=== PATIENT | male | born 1965 | race Caucasian/White ===

== ENCOUNTER 2022-03-10 09:30 | Inpatient (IN) ==
[2022-03-10] MEDS ORDERED: MoRPHine SULFATE 10 MG/ML CARP/VIAL IV STA ×3 (09:57→13:26)
[2022-03-10] MEDS ORDERED: ONDANSETRON INJ 2 MG/ML 2 ML VIAL IV STA (09:57)
[2022-03-10] MEDS ORDERED: SODIUM CHLORIDE 0.9% 1000ML 1,000 ML IV ONE (09:57)
--- NOTE | 2022-03-10 10:01 | Emergency Department Note ---
Impression & Plan Acute cholecystitis, Abdominal pain ED Provider Note NAME: SHAKIRA LOUIS AGE: 56 SEX: M : 1965 ARRIVES VIA: Walk-In INFORMANT: Patient ED PROVIDER(S): eSun Patton DO CHIEF COMPLAINT: abdominal pain HPI: Patient is a 56-year-old male who presents to the ER for epigastric abdominal pain associate with nausea and vomiting. Symptoms initially started on Tuesday and he vomited and it resolved but he had a dull ache in the epigastric region. Started back up yesterday and he is been having severe pain since about 10:00 last night. It is an 8 out of 10. He denies any headache or change in vision. No chest pain or shortness of breath. No dysuria urgency or frequency. No other exacerbating or remitting factors. No previous abdominal surgeries. He does not believe that it is worse with eating or drinking but has not been eating much since this started. ROS: See above HPI for pertinent positives & negatives. A total of 10 systems reviewed and were otherwise negative. PAST MEDICAL HISTORY:See Below PAST SURGICAL HISTORY:See Below FAMILY HISTORY:See Below SOCIAL HISTORY:See Below HOME MEDICATIONS:See Below ALLERGIES:See Below VITALS:See Below PHYSICAL EXAMINATION: GENERAL: Sitting up in bed, alert, well appearing, well nourished, no distress, non-toxic EYE EXAM: normal conjunctiva. OROPHARYNX: mucous membranes are moist LUNGS: Clear to auscultation. Normal chest wall mechanics HEART: no murmurs, S1 normal and S2 normal ABDOMEN: abdomen soft, TTP in RUQ, normo-active bowel sounds, no masses, no rebound or guarding. UPPER EXTREMITIES: upper extremities are grossly normal. LOWER EXTREMITIES: No pitting edema. NEURO EXAM: Normal sensorium, cranial nerves II-XII grossly intact, normal speech, no gross weakness of arms, no gross weakness of legs. MEDICAL DECISION MAKING: Patient is a 56-year-old male who presents ER for severe right upper quadrant abdominal pain. IV was established blood work was obtained. Labs show no significant leukocytosis or anemia. BMP along LFTs bilirubin and lipase is unremarkable. COVID was negative. CT abdomen pelvis shows acute cholecystitis. He was given IV fluids Zofran morphine and Zosyn. Discussed with general surgery and he was seen and evaluated by Dr. Rhodes and admitted to the hospital for further work-up. Triage Nursing notes reviewed. Limited review of prior medical records performed Vital Signs: reviewed and remarkable for HTN Differential diagnosis: Differential diagnoses includes but is not limited to gastritis, peptic ulcer disease, GERD, gallbladder disease, pancreatitis, small bowel obstruction, acute coronary syndrome, pericarditis, ischemic bowel, irritable bowel disease, irri table bowel syndrome, appendicitis, diverticulitis, malignancy, hernia, urinary tract infection, torsion, perforation, trauma, infectious. ER treatment provided: See below Diagnostics interpreted by me: ECG: none Cardiac Monitoring: An order was placed for continuous cardiac monitoring. The monitor shows a rate of 80 with sinus rhythm. Laboratory studies: As stated above and show below. Imaging studies: CT abdomen pelvis shows cholecystitis Consultation(s): Discussed with general surgery Dr. Rhodes as described above Procedures: none Critical Care: None Past Med/Surg History Social History Smoking Status: Current every day smoker Tobacco Type: E-cigarettes / Vaping Preferred Language: Turkish Feels Safe at Home: Yes Allergies Allergies Allergy/AdvReac Type Severity Reaction Status Date / Time NKDA Allergy Unknown NKDA Uncoded 03/10/22 14:02 Home Meds Home Medications Medication Instructions Recorded Confirmed No Known Home Medications 03/10/22 03/10/22 Results & Data (ED) Vital Signs Vital Signs - 24 hr 03/10/22 09:41 03/10/22 10:37 03/10/22 10:31 Temperature 36.2 C L Temperature Source Temporal Artery Scan Pulse Rate 74 74 71 Pulse Rate from SpO2 Sensor 70 Pulse Rhythm Regular Regular Pulse Strength Normal Respiratory Rate 20 20 16 Respiratory Effort / Characteristics Non-Labored Spontaneous Respiratory Depth Normal Respiratory Pattern Regular Blood Pressure 170/97 H Blood Pressure Mean 121 Blood Pressure Position Sitting Pulse Oximetry 95 95 95 Oxygen Delivery Method Room Air Room Air Sepsis Recent Fever Within 48 Hours No Sepsis New/Unexplained Change in Mental Status No Sepsis Action Taken by Nursing No Action Required 03/10/22 10:40 03/10/22 10:40 03/10/22 11:00 Temperature Temperature Source Pulse Rate 63 Pulse Rate from SpO2 Sensor 63 Pulse Rhythm Pulse Strength Respiratory Rate 12 Respiratory Effort / Characteristics Respiratory Depth Respiratory Pattern Blood Pressure 150/89 H 146/88 H Blood Pressure Mean 109 107 Blood Pressure Position Pulse Oximetry 97 Oxygen Delivery Method Sepsis Recent Fever Within 48 Hours Sepsis New/Unexplained Change in Mental Status Sepsis Action Taken by Nursing 03/10/22 11:00 03/10/22 11:30 03/10/22 11:30 Temperature Temperature Source Pulse Rate 62 63 Pulse Rate from SpO2 Sensor 61 63 Pulse Rhythm Pulse Strength Respiratory Rate 15 14 Respiratory Effort / Characteristics Respiratory Depth Respiratory Pattern Blood Pressure 164/132 H Blood Pressure Mean 142 Blood Pressure Position Pulse Oximetry 90 97 Oxygen Delivery Method Sepsis Recent Fever Within 48 Hours Sepsis New/Unexplained Change in Mental Status Sepsis Action Taken by Nursing 03/10/22 12:00 03/10/22 12:00 03/10/22 12:30 Temperature Temperature Source Pulse Rate 63 Pulse Rate from SpO2 Sensor Pulse Rhythm Pulse Strength Respiratory Rate 14 Respiratory Effort / Characteristics Respiratory Depth Respiratory Pattern Blood Pressure 172/98 H 159/90 H Blood Pressure Mean 122 113 Blood Pressure Position Pulse Oximetry 97 Oxygen Delivery Method Sepsis Recent Fever Within 48 Hours Sepsis New/Unexplained Change in Mental Status Sepsis Action Taken by Nursing 03/10/22 12:30 03/10/22 13:00 03/10/22 13:00 Temperature Temperature Source Pulse Rate 79 65 Pulse Rate from SpO2 Sensor Pulse Rhythm Pulse Strength Respiratory Rate 14 16 Respiratory Effort / Characteristics Respiratory Depth Respiratory Pattern Blood Pressure 151/91 H Blood Pressure Mean 111 Blood Pressure Position Pulse Oximetry 96 97 Oxygen Delivery Method Sepsis Recent Fever Within 48 Hours Sepsis New/Unexplained Change in Mental Status Sepsis Action Taken by Nursing 03/10/22 13:30 03/10/22 13:30 03/10/22 14:00 Temperature Temperature Source Pulse Rate 68 Pulse Rate from SpO2 Sensor Pulse Rhythm Pulse Strength Respiratory Rate 13 Respiratory Effort / Characteristics Respiratory Depth Respiratory Pattern Blood Pressure 150/87 H 146/81 H Blood Pressure Mean 108 102 Blood Pressure Position Pulse Oximetry Oxygen Delivery Method Sepsis Recent Fever Within 48 Hours Sepsis New/Unexplained Change in Mental Status Sepsis Action Taken by Nursing 03/10/22 14:00 03/10/22 14:30 03/10/22 14:30 Temperature Temperature Source Pulse Rate 67 66 Pulse Rate from SpO2 Sensor Pulse Rhythm Pulse Strength Respiratory Rate 13 23 Respiratory Effort / Characteristics Respiratory Depth Respiratory Pattern Blood Pressure 131/70 Blood Pressure Mean 90 Blood Pressure Position Pulse Oximetry Oxygen Delivery Method Sepsis Recent Fever Within 48 Hours Sepsis New/Unexplained Change in Mental Status Sepsis Action Taken by Nursing Laboratory Data Result diagrams: 03/10/22 10:40 03/10/22 10:40 Lab Results 03/10/22 03/10/22 03/10/22 Range/Units 10:40 10:40 12:45 WBC 10.24 (4.8-10.8) K/ul RBC 5.46 (4.63-6.08) M/uL Hgb 15.9 (14.0-18.0) g/dl Hct 47.4 (40.1-51.0) % MCV 86.8 (80.0-100.0) fL MCH 29.1 (25.0-34.0) pg MCHC 33.5 (32.0-36.0) g/dL RDW Std Deviation 39.2 (36.4-46.3) fL RDW Coeff of [place] 12.6 (11.5-14.5) % Plt Count 179 (130-400) K/uL MPV 9.8 (9.4-12.4) fL Immature Gran % (Auto) 0.4 % Neut % (Auto) 79.7 % Lymph % (Auto) 10.2 % [place] % (Auto) 8.8 % Eos % (Auto) 0.7 % Baso % (Auto) 0.2 % Neut # (Auto) 8.17 H (1.4-6.5) K/uL Lymph # (Auto) 1.04 L (1.2-3.4) K/uL [place] # (Auto) 0.90 H (0.24-0.82) K/uL Eos # (Auto) 0.07 (0-0.50) K/uL Baso # (Auto) 0.02 (0-0.2) K/uL Immature Gran # (Auto) 0.04 H (0.00-0.02) K/uL Sodium 139 (136-145) mmol/L Potassium 4.4 (3.5-5.1) mmol/L Chloride 104 (98-107) mmol/L Carbon Dioxide 29 (21-32) mmol/L Anion Gap 6 (3-11) BUN 13 (6-23) mg/dl Creatinine 0.98 (0.6-1.4) mg/dl Est Cr Clr Drug Dosing 109.5 ml/min Est GFR ( Amer) 100.9 ml/min Est GFR (Non-Af Amer) 87.1 ml/min BUN/Creatinine Ratio 13.3 (10-20) Glucose 113 H (70-99(Fasting)) mg/dl Calcium 9.5 (8.5-10.1) mg/dl Total Bilirubin 0.5 (0.2-1.0) mg/dl AST 14 (13-39) U/L ALT 17 (7-52) U/L Alkaline Phosphatase 57 (34-104) U/L Total Protein 6.9 (6.0-8.3) gm/dl Albumin 4.3 (3.4-5.0) gm/dl Globulin 2.6 (2.5-4.0) gm/dl Albumin/Globulin Ratio 1.7 (0.9-2) Lipase 70 (11-82) U/L SARS-CoV-2, RNA, NAAT NEGATIVE (NEGATIVE) Administered Medications Discontinued Medications Sodium Chloride (Nss 1000ml) 1,000 mls @ 999 mls/hr IV .Q1H1M ONE Stop: 03/10/22 10:57 Last Infusion: 03/10/22 11:40 Dose: 0 mls/hr Documented By: Admin: 03/10/22 10:36 Dose: 999 mls/hr Documented By: ED Piperacillin Sod/Tazobactam Sod (Zosyn) 4.5 gm in 120 mls @ 240 mls/hr IV NOW ONE Stop: 03/10/22 13:06 Last Infusion: 03/10/22 13:16 Dose: 0 mls/hr Documented By: Admin: 03/10/22 12:46 Dose: 240 mls/hr Documented By: ED Ioversol (Optiray 300 100ml) 95 ml IV ONCE ONE Stop: 03/10/22 11:47 Last Admin: 03/10/22 11:47 Dose: 95 ml Documented By: GARETT Morphine Sulfate (Morphine Sulfate 10 Mg/Ml Carp/Vial) 6 mg IV NOW STA Stop: 03/10/22 09:58 Last Admin: 03/10/22 10:37 Dose: 6 mg Documented By: ED Morphine Sulfate (Morphine Sulfate 10 Mg/Ml Carp/Vial) 6 mg IV NOW STA Stop: 03/10/22 11:49 Last Admin: 03/10/22 11:54 Dose: 6 mg Documented By: RD Morphine Sulfate (Morphine Sulfate 10 Mg/Ml Carp/Vial) 6 mg IV NOW STA Stop: 03/10/22 13:27 Last Admin: 03/10/22 14:43 Dose: 6 mg Documented By: ED Ondansetron HCl (Ondansetron Inj 2 Mg/Ml 2 Ml Vial) 4 mg IV NOW STA Stop: 03/10/22 09:58 Last Admin: 03/10/22 10:37 Dose: 4 mg Documented By: ED Imaging Data Radiologist's Impression: Abdomen/Pelvis CT 03/10/22 09:57 CT OF THE ABDOMEN AND PELVIS WITH CONTRAST CLINICAL HISTORY: Abdominal pain. COMPARISON STUDY: None. TECHNIQUE: Following IV administration of 95 mL of Optiray, axial images of the abdomen and pelvis were obtained from the lung bases to the proximal femurs. Images were reviewed in the axial, sagittal, and coronal planes. IV contrast was administered without complication. Automated exposure control was utilized for the study. A dose lowering technique was utilized adhering to the principles of ALARA. CT DOSE: 1116.35 mGy.cm FINDINGS: There is mild circumferential wall thickening of the distal esophagus. No pneumatosis, free air or portal venous gas is present. A 8 mm hypodense left hepatic lobe lesion on axial image 97 of 536 likely reflects a hepatic cyst. There are several indeterminate intermediate attenuation hepatic lesions within the right lobe, measuring up to 1.8 cm. There is no biliary or pancreatic ductal dilatation. There is moderate pericholecystic stranding. This extends into the juan hepatis. The gallbladder is mildly distended. No calculi are identified by CT. There is no peripancreatic stranding. The spleen, adrenal glands and kidneys are unremarkable. There is no hydronephrosis. The appendix is normal. Colonic diverticulosis is noted without evidence for acute diverticulitis. There is no lymphadenopathy. Postoperative findings within the spine are noted. Small fat-containing right inguinal hernia is present. Major vasculature is patent. IMPRESSION: 1. Moderate pericholecystic infiltration with mild gallbladder distention. The findings suggest acute cholecystitis. 2. Several intermediate attenuation right hepatic lobe lesions that measure up to 1.8 cm. In the absence of known malignancy, these are likely benign although are indeterminate. If indicated, a nonemergent MRI of the liver could be obtained. 3. Mild circumferential wall thickening of the distal esophagus. This could reflect esophagitis. 4. Colonic diverticulosis. No evidence for acute diverticulitis. ACT 112: Negative or not required by law. Electronically signed by: Piyush Hinton M.D. 03/10/2022 12:13 PM Discharge Plan Visit Data Chief Complaint: Abdominal Pain Stated Complaint: SEVERE ABDOMINAL PAIN ED Provider: Seun Patton Discharge Problem: Acute cholecystitis, Abdominal pain Forms Stand Alone Forms: Work/School Release (ED), [facility] Prescriptions Prescriptions: No Action No Known Home Medications Referrals Referrals: PCP,NO [Primary Care Provider] -
[2022-03-10 10:56] LABS: Basophils # (auto) 0.02 K/uL (0-0.2); Basophils % (auto) 0.2 %; Eosinophils # (auto) 0.07 K/uL (0-0.50); Eosinophils % (auto) 0.7 %; Hematocrit (blood only) 47.4 % (40.1-51.0); Hemoglobin 15.9 g/dl (14.0-18.0); Immature Granulocytes # (auto) 0.04 K/uL (0.00-0.02); Immature Granulocytes % (auto) 0.4 %; Lymphocytes # (auto) 1.04 K/uL (1.2-3.4); Lymphocytes % (auto) 10.2 %; Mean Corpuscular Hemoglobin 29.1 pg (25.0-34.0); Mean Corpuscular Hgb Conc 33.5 g/dL (32.0-36.0); Mean Corpuscular Volume 86.8 fL (80.0-100.0); Mean Platelet Volume 9.8 fL (9.4-12.4); Monocytes % (auto) 8.8 %; Neutrophils # (auto) 8.17 K/uL (1.4-6.5); Neutrophils % (auto) 79.7 %; Platelet Count 179 K/uL (130-400); RDW Coefficient of Variation 12.6 % (11.5-14.5); RDW Standard Deviation 39.2 fL (36.4-46.3); Red Blood Count 5.46 M/uL (4.63-6.08); White Blood Count 10.24 K/ul (4.8-10.8)
[2022-03-10 11:19] LABS: Albumin Globulin Ratio 1.7 (0.9-2); Albumin Level 4.3 gm/dl (3.4-5.0); BUN Creatinine Ratio 13.3 (10-20); Bilirubin,Total 0.5 mg/dl (0.2-1.0); Calcium 9.5 mg/dl (8.5-10.1); Creatinine Clr Calc Pharmacy 109.5 ml/min; Est GFR (African American) 100.9 ml/min; Est GFR (Non-African American) 87.1 ml/min; Globulin 2.6 gm/dl (2.5-4.0); Potassium 4.4 mmol/L (3.5-5.1); Total Protein 6.9 gm/dl (6.0-8.3)
[2022-03-10] MEDS ORDERED: OPTIRAY 300 100mL IV ONE (11:46)
--- NOTE | 2022-03-10 12:15 | CT Scan Report ---
CT OF THE ABDOMEN AND PELVIS WITH CONTRAST CLINICAL HISTORY: Abdominal pain. COMPARISON STUDY: None. TECHNIQUE: Following IV administration of 95 mL of Optiray, axial images of the abdomen and pelvis we re obtained from the lung bases to the proximal femurs. Images were reviewed in the axial, sagittal, and coronal planes. IV contrast was administered without complication. Automated exposure control wa s utilized for the study. A dose lowering technique was utilized adhering to the principles of ALARA . CT DOSE: 1116.35 mGy.cm FINDINGS: There is mild circumferential wall thickening of the distal esophagus. No pneumatosis, free air or portal venous gas is present. A 8 mm hypodense left hepatic lobe lesion on axial image 97 of 536 likely reflects a hepatic cyst. There are several indeterminate intermediate attenuation hepatic lesions within the right lobe, measuring up to 1.8 cm. There is no biliary or pancreatic ductal dilat ation. There is moderate pericholecystic stranding. This extends into the juan hepatis. The gallblad mary is mildly distended. No calculi are identified by CT. There is no peripancreatic stranding. The s pleen, adrenal glands and kidneys are unremarkable. There is no hydronephrosis. The appendix is tristan l. Colonic diverticulosis is noted without evidence for acute diverticulitis. There is no lymphadenop athy. Postoperative findings within the spine are noted. Small fat-containing right inguinal hernia i s present. Major vasculature is patent. IMPRESSION: 1. Moderate pericholecystic infiltration with mild gallbladder distention. The findings suggest acute cholecystitis. 2. Several intermediate attenuation right hepatic lobe lesions that measure up to 1.8 cm. In the abse nce of known malignancy, these are likely benign although are indeterminate. If indicated, a nonemerg ent MRI of the liver could be obtained. 3. Mild circumferential wall thickening of the distal esophagus. This could reflect esophagitis. 4. Colonic diverticulosis. No evidence for acute diverticulitis. ACT 112: Negative or not required by law. Electronically signed by: Piyush Hinton M.D. 03/10/2022 12:13 PM
[2022-03-10] MEDS ORDERED: PIPERACILLIN/TAZOBACTAM 4.5 GM/120 ML BAG IV ONE (12:37)
--- NOTE | 2022-03-10 13:49 | Surgery Consultation ---
Date of Consultation March 10, 2022 Assessment & Plan (1) Acute cholecystitis: pt is a 56 year -old male who presents to ER with 2 days history of RUQ pain with nausea and vomiting, IMP: acute cholecystitis, Plan I recommend to admit pt to hospital , NPO, IV fluid antibiotic, control pain, U/S study gallbladder. MRI liver lesion, repeat labs in morning, possible do laparoscopic cholecystectomy, possible open or cholangiogram tomorrow, D/W benefits, risks and alternatives of the surgery, pt understood, he agrees wit the plan, I answered all questions, History of Present Illness Reason for Consultation: acute cholecystitis Requesting Physician: Seun Thomas Attending Physician: Zohaib Irene History of Present Illness CHIEF COMPLAINT: abdominal pain HPI: Patient is a 56-year-old male who presents ER for epigastric abdominal pain associate with nausea and vomiting. Symptoms initially started on Tuesday and he vomited and it resolved but he had a dull ache in the epigastric region. Started back up yesterday and he is been having severe pain since about 10:00 last night. It is an 8 out of 10. He denies any headache or change in vision. No chest pain or shortness of breath. No dysuria urgency or frequency. No other exacerbating or remitting factors. No previous abdominal surgeries. He does not believe that it is worse with eating or drinking but has not been eating much since this started. I ( Zohaib Rhodes MD ) got a call for consult acute cholecystitis, I reviewed pt's H/P, labs and CT scan with pt, pt is still have RUQ pain pain is 8/10, Patient History Social History Smoking Status: Current every day smoker Tobacco Type: E-cigarettes / Vaping Preferred Language: Serbian Feels Safe at Home: Yes Physical Exam Constitutional: mild distress Eyes: PERRL, conjunctivae normal, anicteric sclerae Neck: trachea midline, no thyromegaly Respiratory: normal respiratory effort, lungs clear to auscultation Cardiovascular: RRR, no murmur, no edema Gastrointestinal (Abdomen): soft. tenderness at RUQ, no rebound pain, no distend, BS +. Musculoskeletal: no cyanosis or clubbing, extremities motor strength 5/5 Neurologic: patellar DTR's 2+ bilat, sensation intact Psychiatric: A+Ox3, euthymic affect Results & Data ([facility]) Vital Signs (Past 12 Hours) Vital Signs Temp Pulse Resp BP Pulse Ox O2 Del Method 03/10/22 13:00 65 16 97 03/10/22 13:00 151/91 H 03/10/22 12:30 79 14 96 03/10/22 12:30 159/90 H 03/10/22 12:00 63 14 97 03/10/22 12:00 172/98 H 03/10/22 11:30 63 14 97 03/10/22 11:30 164/132 H 03/10/22 11:00 62 15 90 03/10/22 11:00 146/88 H 03/10/22 10:40 63 12 97 03/10/22 10:40 150/89 H 03/10/22 10:31 71 16 95 03/10/22 10:37 74 20 95 Room Air 03/10/22 09:41 36.2 C L 74 20 170/97 H 95 Room Air Laboratory Results Abnormal lab results 03/10/22 03/10/22 Range/Units 10:40 10:40 Neut # (Auto) 8.17 H (1.4-6.5) K/uL Lymph # (Auto) 1.04 L (1.2-3.4) K/uL [place] # (Auto) 0.90 H (0.24-0.82) K/uL Immature Gran # (Auto) 0.04 H (0.00-0.02) K/uL Glucose 113 H (70-99(Fasting)) mg/dl Diagnostic Findings CT OF THE ABDOMEN AND PELVIS WITH CONTRAST CLINICAL HISTORY: Abdominal pain. COMPARISON STUDY: None. TECHNIQUE: Following IV administration of 95 mL of Optiray, axial images of the abdomen and pelvis were obtained from the lung bases to the proximal femurs. Images were reviewed in the axial, sagittal, and coronal planes. IV contrast was administered without complication. Automated exposure control was utilized for the study. A dose lowering technique was utilized adhering to the principles of ALARA. CT DOSE: 1116.35 mGy.cm FINDINGS: There is mild circumferential wall thickening of the distal esophagus. No pneumatosis, free air or portal venous gas is present. A 8 mm hypodense left hepatic lobe lesion on axial image 97 of 536 likely reflects a hepatic cyst. There are several indeterminate intermediate attenuation hepatic lesions within the right lobe, measuring up to 1.8 cm. There is no biliary or pancreatic ductal dilatation. There is moderate pericholecystic stranding. This extends into the juan hepatis. The gallbladder is mildly distended. No calculi are identified by CT. There is no peripancreatic stranding. The spleen, adrenal glands and kidneys are unremarkable. There is no hydronephrosis. The appendix is normal. Colonic diverticulosis is noted without evidence for acute diverticulitis. There is no lymphadenopathy. Postoperative findings within the spine are noted. Small fat- containing right inguinal hernia is present. Major vasculature is patent. IMPRESSION: 1. Moderate pericholecystic infiltration with mild gallbladder distention. The findings suggest acute cholecystitis. 2. Several intermediate attenuation right hepatic lobe lesions that measure up to 1.8 cm. In the absence of known malignancy, these are likely benign although are indeterminate. If indicated, a nonemergent MRI of the liver could be obtained. 3. Mild circumferential wall thickening of the distal esophagus. This could reflect esophagitis. 4. Colonic diverticulosis. No evidence for acute diverticulitis.
[2022-03-10 15:40] LABS: Appearance Urine Clear (Clear); Bilirubin Urine Negative (Negative); Blood Urine Negative (Negative); Color Urine Yellow; Glucose Urine UA Negative (Negative); Ketones Urine Negative (Negative); Leukocyte Esterase Urine Negative (Negative); Nitrite Urine Negative (Negative); Protein Urine Negative (Negative); Specific Gravity Urine > 1.045 (1.000-1.030); Urobilinogen Urine Negative (Negative); pH Urine 6.5 (4.5-7.5)
[2022-03-10] MEDS ORDERED: HYDROmorphone INJ 0.5 MG/0.5 ML SYR IV PRN (16:27)
--- NOTE | 2022-03-10 17:09 | Anesthesiology Consultation ---
Date of Service March 10, 2022 Assessment & Plan (1) Encounter for pre-operative examination: Chart Review Chart Review: Acceptable Risk for Surgery and Patient NOT seen in Pre Admission Testing Consults Requested none History Surgery Operation Date: 03/11/22 07:00 Proposed Procedures p Laparoscopic Cholecystectomy - Zohaib Rhodes MD Height/Weight Height: 5 ft 11 in Weight: 111.6 kg Allergies Allergy/AdvReac Type Severity Reaction Status Date / Time NKDA Allergy Unknown NKDA Uncoded 03/10/22 14:02 Medications Home Medications Medication Instructions Recorded Confirmed Last Taken No Known Home Medications 03/10/22 03/10/22 Unknown Active Medications Generic Name Dose Route Start Last Admin Trade Name Freq PRN Reason Stop Dose Admin Potassium Chloride/Dextrose/Sod Cl 20 meq in 1,000 mls @ 100 mls/hr 03/10/22 17:00 03/10/22 17:10 D5w And 1/2nss + 20meq Kcl IV 04/09/22 16:59 100 mls/hr .Q10H JAY Administration Protocol Past Medical History Medical History Obesity Vapes nicotine containing substance Social History Smoking Status: Current every day smoker tobacco type: e-cigarettes Do You Dip or Chew Tobacco: No Hx Alcohol Use: No Hx Substance Use: No Physical Exam Vital Signs Last Vital Signs Temp 36.9 C 03/10/22 16:31 Pulse 73 03/10/22 16:31 Resp 19 03/10/22 16:31 BP 151/89 H 03/10/22 16:31 Pulse Ox 95 03/10/22 16:31 O2 Del Method 03/10/22 16:31 Testing Laboratory Results 03/10/22 10:40 03/10/22 10:40 Urine Color Yellow 03/10/22 14:45 Urine Appearance Clear (Clear) 03/10/22 14:45 Urine pH 6.5 (4.5-7.5) 03/10/22 14:45 Ur Specific [place] > 1.045 (1.000-1.030) H 03/10/22 14:45 Urine Protein Negative (Negative) 03/10/22 14:45 Urine Glucose (UA) Negative (Negative) 03/10/22 14:45 Urine Ketones Negative (Negative) 03/10/22 14:45 Urine Nitrite Negative (Negative) 03/10/22 14:45 Ur Leukocyte Esterase Negative (Negative) 03/10/22 14:45 Electrocardiogram Date: 03/10/22 Findings: + NSST changes and + RBBB (incomplete) NSR with sinus arrhythmia, rate 69, pulmonary disease pattern
[2022-03-10] MEDS: PIPERACILLIN/TAZOBACTAM 3.375 GM in DEXTROSE 5% 100 ML IV SCH (17:10)
[2022-03-10] MEDS: D5W AND 1/2NSS + 20MEQ KCL 20 MEQ/1,000 ML BAG IV SCH (17:10)
--- NOTE | 2022-03-10 18:52 | XRay Report ---
XR orbits for MRI CLINICAL HISTORY: to R/O FB TECHNIQUE: AP and lateral views of the orbits were submitted for interpretation. Comparison: None available at the time of this dictation. FINDINGS/IMPRESSION: There are no radiopaque metallic foreign bodies. The osseous structures are unremarkable. ACT 112: Negative or not required by law. Electronically signed by: Gianni Garza M.D. 03/10/2022 6:51 PM
[2022-03-10] MEDS ORDERED: GADOXETATE DISODIUM IV ONE (19:42)
--- NOTE | 2022-03-10 21:09 | Ultrasound Report ---
US gallbladder CLINICAL HISTORY: liver and gallbladder TECHNIQUE: Multiple real-time sonographic images of the right upper quadrant were obtained. Comparison: None available at the time of this dictation. FINDINGS: The liver is diffusely homogenous with normal contour and echogenicity. Numerous echogenic lesions ar e seen, measuring up to 1.5 x 1.5 x 1.6 cm. No intrahepatic ductal dilatation is seen. Low level int ernal echoes are identified layering dependently within the gallbladder, which is consistent with gal lbladder sludge. The gallbladder wall measures approximately 3 mm in diameter. There is no pericholec ystic fluid present. A sonographic Ellison's sign was elicited by the community relations police lieutenant. The common duct m easures 0.5 cm in diameter at the level of the hepatic artery. The distal pancreas is not visualized due to overlying bowel gas. The visualized portions of the pancreas are unremarkable. The right kidney shows normal echogenicity, cortical thickness and renal contour. The right kidney sh ows no evidence of hydronephrosis or mass. No ascites or free fluid is seen in Tony's pouch. IMPRESSION: 1. Distended appearing gallbladder with borderline wall thickening and gallbladder sludge, together with positive Ellison's sign, is suggestive of acute cholecystitis despite lack of pericholecystic flu id. 2. Hyperechoic liver lesions are seen which likely correspond to hypodensities on prior CT. These ma y represent hemangiomas. If not previously evaluated, liver protocol CT or MRI can be performed. ACT 112: Negative or not required by law. Electronically signed by: Gianni Garza M.D. 03/10/2022 9:07 PM
[2022-03-10] MEDS: ONDANSETRON INJ 2 MG/ML 2 ML VIAL IV PRN (21:29)
--- NOTE | 2022-03-10 22:03 | Magnetic Resonance Report ---
MR abdomen wo/w con CLINICAL HISTORY: liver lesions TECHNIQUE: Multiplanar multisequence images were obtained of the abdomen with and without the adminis tration of contrast. COMPARISON: Comparison is made to CT abdomen pelvis 03/10/2022 FINDINGS: Lower chest: No acute abnormality Liver: A few tiny hepatic cysts are seen. In addition, there is a 15 mm lesion in segment 5 of the li elsa with nodular centripetal enhancement compatible with hemangioma. Gallbladder and biliary tree: Layering gallbladder sludge is seen. There is prominence of the gallbla dder wall and mild pericholecystic edema is seen on T2 imaging. No intra- or extrahepatic biliary jeremías chinyere dilation. Pancreas: Unremarkable, no focal lesions. Spleen: Unremarkable. Adrenals: Unremarkable. Kidneys and ureters: Unremarkable. Bowel: Diverticulosis is seen without evidence of diverticulitis. Mild esophageal thickening is seen. Lymph nodes Retroperitoneal: Unremarkable. Mesenteric: Unremarkable. Peritoneum: Normal Vessels: Unremarkable. Abdominal wall: Unremarkable. Bones: Unremarkable. IMPRESSION: 1. Hepatic lesions are compatible with hemangiomas and cysts. No suspicious lesions with washout are seen. 2. Findings are again concerning for acute cholecystitis with gallbladder sludge. 3. Mild esophageal thickening is seen, clinical correlation for esophagitis is recommended. ACT 112: Negative or not required by law. Electronically signed by: Gianni Garza M.D. 03/10/2022 10:01 PM
[2022-03-11] MEDS: PIPERACILLIN/TAZOBACTAM 3.375 GM in DEXTROSE 5% 100 ML IV SCH ×3 (01:55→17:04)
[2022-03-11] MEDS: D5W AND 1/2NSS + 20MEQ KCL 20 MEQ/1,000 ML BAG IV SCH ×2 (02:28→13:37)
[2022-03-11] MEDS: MoRPHine SULFATE 2 MG/ML CARP IV PRN ×2 (06:05→21:42)
[2022-03-11] MEDS: ONDANSETRON INJ 2 MG/ML 2 ML VIAL IV PRN (06:06)
[2022-03-11 06:35] LABS: Basophils # (auto) 0.02 K/uL (0-0.2); Basophils % (auto) 0.2 %; Eosinophils # (auto) 0.08 K/uL (0-0.50); Eosinophils % (auto) 0.8 %; Hematocrit (blood only) 42.6 % (40.1-51.0); Hemoglobin 14.5 g/dl (14.0-18.0); Immature Granulocytes # (auto) 0.02 K/uL (0.00-0.02); Immature Granulocytes % (auto) 0.2 %; Lymphocytes # (auto) 0.96 K/uL (1.2-3.4); Lymphocytes % (auto) 9.5 %; Mean Corpuscular Hemoglobin 29.2 pg (25.0-34.0); Mean Corpuscular Volume 85.7 fL (80.0-100.0); Monocytes % (auto) 11.9 %; Neutrophils # (auto) 7.79 K/uL (1.4-6.5); Neutrophils % (auto) 77.4 %; Platelet Count 172 K/uL (130-400); RDW Coefficient of Variation 12.5 % (11.5-14.5); RDW Standard Deviation 38.8 fL (36.4-46.3); Red Blood Count 4.97 M/uL (4.63-6.08); White Blood Count 10.07 K/ul (4.8-10.8)
[2022-03-11 06:56] LABS: Albumin Globulin Ratio 1.6 (0.9-2); Albumin Level 3.7 gm/dl (3.4-5.0); BUN Creatinine Ratio 10.3 (10-20); Bilirubin,Total 0.7 mg/dl (0.2-1.0); Calcium 8.6 mg/dl (8.5-10.1); Creatinine Clr Calc Pharmacy 123.3 ml/min; Est GFR (African American) 113.4 ml/min; Est GFR (Non-African American) 97.8 ml/min; Globulin 2.3 gm/dl (2.5-4.0); Potassium 4.1 mmol/L (3.5-5.1)
--- NOTE | 2022-03-11 09:52 | History & Physical Bridge Note ---
Date of Service March 11, 2022 History & Physical Bridge Note I have examined the patient, reviewed the History & Physical and in the interval since the performance of the History & Physical I have noted the following changes of clinical significance: no changes noted
[2022-03-11] MEDS ORDERED: LIDOCAINE 1% LOCAL 20 ML VIAL ONE (09:55)
[2022-03-11] MEDS ORDERED: BUPIVACAINE 0.5 % 5 MG/1 ML MPF 30ML VIAL ONE (09:55)
[2022-03-11] MEDS ORDERED: BACITRACIN OINT 15 GM TUBE ONE (09:55)
[2022-03-11] MEDS ORDERED: MIDAZOLAM HCL 1 MG/ML 2ML VIAL ONE (09:56)
[2022-03-11] MEDS ORDERED: ROCURONIUM BROMIDE 10 MG/ML 5 ML VIAL IV ONE ×2 (09:56→10:47)
[2022-03-11] MEDS ORDERED: LIDOCAINE 2% MPF LOCAL 5 ML VIAL INFIL ONE (09:56)
[2022-03-11] MEDS ORDERED: PROPOFOL IV EMULSION 10 MG/ML 20 ML VIAL IV ONE (09:56)
[2022-03-11] MEDS ORDERED: fentaNYL citrate 100 MCG/2 ML VIAL ONE ×3 (09:57→11:56)
[2022-03-11] MEDS ORDERED: ONDANSETRON INJ 2 MG/ML 2 ML VIAL IV PRN (10:02)
[2022-03-11] MEDS ORDERED: fentaNYL citrate 100 MCG/2 ML VIAL IV PRN (10:02)
[2022-03-11] MEDS ORDERED: ATROPINE SULFATE 0.1 MG/ML 10ML SYR IV PRN (10:02)
[2022-03-11] MEDS ORDERED: ePHEDrine sulfate 50 MG/ML AMP IV PRN (10:02)
[2022-03-11] MEDS ORDERED: ONDANSETRON INJ 2 MG/ML 2 ML VIAL ONE (10:46)
[2022-03-11] MEDS ORDERED: DEXAMETHASONE SOD INJ 4 MG/ML VIAL ONE (10:47)
[2022-03-11] MEDS ORDERED: KETAMINE 50 MG/5 ML SYRINGE ONE (12:05)
--- NOTE | 2022-03-11 12:05 | Post Operative Brief Note ---
Immediate Post Op Note v1 Date of Surgery March 11, 2022 Pre & Post Diagnosis Operation Date: 03/11/22 07:00 Pre-Op Diagnosis: Acute Cholecystitis, cholelithiasis Post-Op Diagnosis: Acute Cholecystitis, cholelithiasis I identified the patient and participated in the time-out.: Yes Procedure Operation Date: 03/11/22 07:00 Actual Procedures p Laparoscopic Cholecystectomy(Not Applicable) - Zohaib Rhodes MD Surgeon Zohaib Rhodes MD Equal Opportunity Representative EVITA Chan Estimated Blood Loss 30 Findings Consistent with Post-Op Diagnosis significant inflammation on gallbladder wall, Fluids 1000ml Specimens gallbladder Anesthesia Type General Complications none Disposition Accompanied Patient To Recovery: Yes
--- NOTE | 2022-03-11 13:19 | Anesthesiology Progress Note ---
Date of Service March 11, 2022 Anesthesia Post Procedure Vital Signs Vital Signs: Temp Pulse Pulse Pulse Pulse Resp BP 03/11/22 13:10 97 H 17 03/11/22 13:00 98.4 F 65 17 03/11/22 12:50 71 16 03/11/22 12:40 72 15 03/11/22 12:32 98.2 F 71 21 03/11/22 09:41 98.8 F 66 20 03/11/22 06:11 98.6 F 75 16 03/10/22 21:30 03/10/22 21:30 03/10/22 22:52 97.9 F 72 18 03/10/22 17:30 03/10/22 16:31 98.4 F 73 19 03/10/22 16:03 88 16 150/82 H 03/10/22 14:30 66 23 03/10/22 14:30 131/70 03/10/22 14:00 67 13 03/10/22 14:00 146/81 H 03/10/22 13:30 68 13 03/10/22 13:30 150/87 H BP BP Pulse Ox Pulse Ox O2 Del Method O2 Del Method O2 Flow Rate 03/11/22 13:10 107/62 93 Nasal Cannula 2 03/11/22 13:00 108/68 94 Nasal Cannula 2 03/11/22 12:50 116/65 96 Oxymask 8 03/11/22 12:40 117/62 94 Oxymask 8 03/11/22 12:32 131/77 91 Oxymask 5 03/11/22 09:41 122/75 95 Room Air 03/11/22 06:11 122/74 94 Room Air 03/10/22 21:30 93 Room Air 03/10/22 21:30 Room Air 03/10/22 22:52 110/67 93 Room Air 03/10/22 17:30 152/83 H 03/10/22 16:31 151/89 H 95 Room Air 03/10/22 16:03 95 Room Air 03/10/22 14:30 03/10/22 14:30 03/10/22 14:00 03/10/22 14:00 03/10/22 13:30 03/10/22 13:30 Pain Intensity Abdomen: Pain Intensity: 4 Head: Pain Intensity: 4 Transfer of Care Handoff Completed per policy Notes Mental Status: alert / awake / arousable and participated in evaluation Patient Amnestic to Procedure: Yes Nausea / Vomiting: adequately controlled Pain: adequately controlled Airway Patency, RR, SpO2: stable & adequate BP & HR: stable & adequate Hydration State: stable & adequate Anesthetic Complications: no major complications apparent and Pt Satisfied with anesthetic care
--- NOTE | 2022-03-11 14:44 | Operative Report (OR) ---
DATE OF PROCEDURE: 03/11/2022. PREOPERATIVE DIAGNOSES: Acute cholecystitis, cholelithiasis. POSTOPERATIVE DIAGNOSES: Acute cholecystitis, cholelithiasis. OPERATION: Laparoscopic cholecystectomy. SURGEON: Zohaib Rhodes MD. [place] ADMINISTRATOR: Shraddha Riddle PA-C. ANESTHESIA: General. ESTIMATED BLOOD LOSS: About 30 mL. FINDINGS: Significant inflammation on the gallbladder wall, acute cholecystitis. COMPLICATIONS: None. INDICATIONS FOR THE PROCEDURE: This is a 56-year-old gentleman who was admitted to the hospital for acute cholecystitis, cholelithiasis. I recommended to do laparoscopic cholecystectomy, possible open , possible cholangiogram. I did talk to the patient about the benefit, risk, alternate procedure. I indicated the risks may include, but not limited to, such as bleeding, infection, injury to other or magi, may need ERCP, incisional hernia, abscess, bile leak. The patient understands. He signed info rmed consent and I answered all questions. DETAILS OF PROCEDURE: After we identified the patient and verified the procedure, we brought the pat ient to the OR, put the patient in the supine position on the OR table. The patient received SCD on bilateral legs to prevent DVT. Also, patient received 3.375 grams Zosyn IV for prophylactic antibiot ic and the patient received general anesthesia without difficulty. The abdomen was prepped and drape d in routine sterile fashion. After timeout, I injected the local anesthesia by using 1% lidocaine m ixed with 0.5% Marcaine just above the umbilicus, then I made a small incision just above umbilicus, opened fascia, opened peritoneum. Under direct vision, put a Brianna trocar in, connected to CO2 to c reate pneumoperitoneum, flow rate at 6 liters per minute, pressure not more than 14 mmHg. Once we got a nice pneumoperitoneum, we put a camera in, looked around the abdomen, it shows normal f inding on the liver, the gallbladder showed significant inflammation and edema on the gallbladder wal l. Gallbladder with distention confirmed diagnosis of acute cholecystitis. Once we confirmed the hali gnosis, we put another two 5 mm trocars on the right upper quadrant, one 12 trocar on the epigastric area. Once all trocars in, we used the larger needle to decompress the gallbladder first. Then, we used the grasper to hold the base of gallbladder, put in the direction to the diaphragm, another gras per to hold the pouch of gallbladder, put the latter to expunge the triangle of Calot. The cystic du ct was identified and mobilized. I put two 10 mm metal clips on the proximal cystic duct, one on the distal cystic duct. I then used a scissor for transection of cystic duct; rechecked, no bile leak. The cystic artery was identified and mobilized. I put two 5 mm metal clips on the proximal cystic a rtery, one on the distal cystic artery, we used a scissor for transection of cystic artery, rechecked , no active bleeding. Then, we used the Bovie to take down gallbladder from liver bed; rechecked, no active bleeding, no bile leak from liver bed. Then, we removed the gallbladder through the catch ba g. Then, we reinserted the Brianna trocar in, connected to CO2 to create pneumoperitoneum, again looked a round the abdomen, no active bleeding, no bile leak from liver bed. Then, we removed all trocars und er direct vision. No active bleeding from the trocar sites. Pneumoperitoneum was released, then I c losed the umbilical incision fascial layer by using 0 Vicryl [id number] x2, closed subcutaneous layer by using 2-0 Vicryl interruptedly, closed skin by using 4-0 Vicryl continuous running, closed t he epigastric incision fascial layer by using 0 Vicryl [id number] x2, closed subcutaneous layer by using 2-0 Vicryl interruptedly, closed skin by using 4-0 Vicryl interruptedly, closed another two 5 mm trocar site of skin only by using 4-0 Vicryl. Then, we put the dressing on. The patient tolera olinda the procedure well. All instrument, needle and sponge counts were correct x2 at the end of the c ase. The patient was transferred to recovery room in stable condition. The specimen was sent to andrew carrillo. After the procedure, I did talk to the patient about the OR finding and the procedure we did , the patient understands and the human resource assistant, Shraddha, is necessary for this procedure. Her rol e was to hold the camera, retraction and exposure. Job ID: [id number]
--- NOTE | 2022-03-11 21:08 | Electrocardiogram Report ---
Test Reason : Blood Pressure : / mmHG Vent. Rate : 069 BPM Atrial Rate : 069 BPM P-R Int : 162 ms QRS Dur : 096 ms QT Int : 382 ms P-R-T Axes : 080 -81 082 degrees QTc Int : 409 ms Normal sinus rhythm with sinus arrhythmia Left axis deviation Incomplete right bundle branch block T wave abnormality, consider anterior ischemia Abnormal ECG No previous ECGs available Confirmed by Jamaal Solorio ([id number]) on 03/11/2022 9:07:59 PM Referred By: REFERRED SELF Confirmed By:Jamaal Solorio
[2022-03-12] MEDS: D5W AND 1/2NSS + 20MEQ KCL 20 MEQ/1,000 ML BAG IV SCH ×2 (00:01→10:03)
[2022-03-12] MEDS: PIPERACILLIN/TAZOBACTAM 3.375 GM in DEXTROSE 5% 100 ML IV SCH ×2 (00:06→08:36)
[2022-03-12] MEDS: MoRPHine SULFATE 2 MG/ML CARP IV PRN (03:46)
[2022-03-12 06:57] LABS: Basophils # (auto) 0.01 K/uL (0-0.2); Basophils % (auto) 0.1 %; Eosinophils # (auto) 0.04 K/uL (0-0.50); Eosinophils % (auto) 0.4 %; Hematocrit (blood only) 38.9 % (40.1-51.0); Hemoglobin 13.1 g/dl (14.0-18.0); Immature Granulocytes # (auto) 0.04 K/uL (0.00-0.02); Immature Granulocytes % (auto) 0.4 %; Lymphocytes # (auto) 1.29 K/uL (1.2-3.4); Lymphocytes % (auto) 12.5 %; Mean Corpuscular Hgb Conc 33.7 g/dL (32.0-36.0); Mean Corpuscular Volume 86.1 fL (80.0-100.0); Mean Platelet Volume 9.8 fL (9.4-12.4); Monocytes % (auto) 11.7 %; Neutrophils # (auto) 7.72 K/uL (1.4-6.5); Neutrophils % (auto) 74.9 %; Platelet Count 168 K/uL (130-400); RDW Coefficient of Variation 12.3 % (11.5-14.5); RDW Standard Deviation 38.5 fL (36.4-46.3); Red Blood Count 4.52 M/uL (4.63-6.08)
[2022-03-12 07:22] LABS: Albumin Globulin Ratio 1.4 (0.9-2); Albumin Level 3.3 gm/dl (3.4-5.0); BUN Creatinine Ratio 10.5 (10-20); Bilirubin,Total 0.4 mg/dl (0.2-1.0); Calcium 8.4 mg/dl (8.5-10.1); Creatinine Clr Calc Pharmacy 124.8 ml/min; Est GFR (African American) 113.9 ml/min; Est GFR (Non-African American) 98.3 ml/min; Globulin 2.3 gm/dl (2.5-4.0); Total Protein 5.6 gm/dl (6.0-8.3)
[2022-03-12] MEDS: oxyCODONE/ACETAMINOPHEN 5mg/325mg TAB PO PRN ×2 (08:36→13:22)
--- NOTE | 2022-03-12 11:26 | Surgery Progress Note ---
Date of Service March 12, 2022 Assessment & Plan (1) Acute cholecystitis: Plan: pt is a 56 year -old male who presents to ER with 2 days history of RUQ pain with nausea and vomiting, IMP: acute cholecystitis, Plan I recommend to admit pt to hospital , NPO, IV fluid antibiotic, control pain, U/S study gallbladder. MRI liver lesion, repeat labs in morning, possible do laparoscopic cholecystectomy, possible open or cholangiogram tomorrow, D/W benefits, risks and alternatives of the surgery, pt understood, he agrees wit the plan, I answered all questions, 03/12/2022 11:24AM F/U S/P lap marybeth, POD 1 doing fine, tolerated diet, D/C home today, post-op care instruction was given F/U 2 weeks, Admission and Anticipated Discharge Date Admission Date: March 10, 2022 Subjective F/U S/P lap marybeth, POD 1 pt is doing fine, no significant abdominal pain, no nausea, no vomiting, Physical Exam Eyes: PERRL, conjunctivae normal, anicteric sclerae Neck: trachea midline, no thyromegaly Respiratory: normal respiratory effort, lungs clear to auscultation Cardiovascular: RRR, no murmur, no edema Gastrointestinal (Abdomen): soft, mild tenderness at incision sites, no rebound pain, no distend, BS +, all incisions intact, no redness, Musculoskeletal: no cyanosis or clubbing, extremities motor strength 5/5 Neurologic: patellar DTR's 2+ bilat, sensation intact Psychiatric: A+Ox3, euthymic affect Results & Data ([facility]) Vital Signs (Past 12 Hours) Vital Signs Temp Pulse Resp BP BP Pulse Ox O2 Del Method 03/12/22 07:15 Room Air 03/12/22 07:36 36.7 C 62 12 98/63 L 92 Room Air 03/12/22 03:43 36.8 C 61 15 106/68 93 Room Air 03/12/22 00:06 37.3 C 68 18 107/69 93 Room Air Laboratory Results Abnormal lab results 03/12/22 03/12/22 Range/Units 06:27 06:27 RBC 4.52 L (4.63-6.08) M/uL Hgb 13.1 L (14.0-18.0) g/dl Hct 38.9 L (40.1-51.0) % Neut # (Auto) 7.72 H (1.4-6.5) K/uL Flagler # (Auto) 1.20 H (0.24-0.82) K/uL Immature Gran # (Auto) 0.04 H (0.00-0.02) K/uL Glucose 129 H (70-99(Fasting)) mg/dl Calcium 8.4 L (8.5-10.1) mg/dl AST 11 L (13-39) U/L Total Protein 5.6 L (6.0-8.3) gm/dl Albumin 3.3 L (3.4-5.0) gm/dl Globulin 2.3 L (2.5-4.0) gm/dl
--- NOTE | 2022-03-15 10:15 | Discharge Summary ---
Date of Service March 15, 2022 Admission HPI Per Admitting Provider Symptoms initially started on Tuesday and he vomited and it resolved but he had a dull ache in the epigastric region. Started back up yesterday and he is been having severe pain since about 10:00 last night. It is an 8 out of 10. He denies any headache or change in vision. No chest pain or shortness of breath. No dysuria urgency or frequency. No other exacerbating or remitting factors. No previous abdominal surgeries. He does not believe that it is worse with eating or drinking but has not been eating much since this started. I ( Zohaib Rhodes MD ) got a call for consult acute cholecystitis, I reviewed pt's H/P, labs and CT scan with pt, pt is still have RUQ pain pain is 8/10, Principal Diagnosis Acute cholecystitis Discharge Data Allergies Allergy/AdvReac Type Severity Reaction Status Date / Time NKDA Allergy Unknown NKDA Uncoded 03/10/22 14:02 Consultations 03/10/22 12:37 ED Decision to Admit Stat Procedures Performed Operation Date: 03/11/22 07:00 Actual Procedures p Laparoscopic Cholecystectomy(Not Applicable) - Zohaib Rhodes MD Ordered Studies 03/10/22 09:57 CT Abd and Pelvis [CT abd pelvis IV con only] Stat 03/10/22 14:08 US gallbladder Stat 03/10/22 16:27 MRI Abdomen [MR abdomen wo/w con] Routine Hospital Course (1) Acute cholecystitis: Patient was admitted to hospital from emergency department and started on IV fluids, IV Zosyn, NPO, pain management as needed, IV Zofran as needed for nausea and a gallbladder ultrasound and MRI of abdomen ordered to further evaluate the gallbladder and liver lesions seen on CT scan respectively. MRI showed liver with hemangiomas and gallbladder with sludge and concern for acute cholecystitis. Patien was taken to operating room for laparoscopic cholecystectomy on 03/11/2022. Patient found to have acute cholecystitis. P atient tolerated procedure well and was transferred to recovery and then back to medical/surgical floor for postop care. Diet advanced to clear liquids. PO Percocet as needed for pain. Activity as tolerated. POD # 1 avss, postop pain controlled, tolerating diet. Patient was discharged home on POD # 1 in stable condition. Total Time Total Time Spent Total Time Spent (In Minutes): 30 minutes Total Time Includes: Examination of the Patient, Discharge Planning and Medication Reconciliation Discharge Plan Discharge Items Patient Disposition: Home - Self-Care Reason For Visit: VOMITING, LOWER ABDOMINAL PAIN Discharge Diagnosis: Acute cholecystitis Activity: Per Instructions section Non-emergency contact: Primary Care Provider and Surgeon Call non-emergency contact if: you have any medication questions, your pain is concerning for you, you have a fever, your temperature is above 101, your wound has increased redness, your wound has increased drainage and your wound pain has increased Follow-up/Referrals: Zohaib Rhodes MD [Physician] - PCP,JEROME [Primary Care Provider] - Diet: Regular Addtl Attending Provider Instructions: Post-Surgical ~Discharge Instructions Activity Recommendations: - lifting limitation: (20 pounds for 4 weeks), - exercise/sex/sports limit: (nonstrenuous for 2 weeks), - driving or machine use limit: (none for 1 week or until pain free and no longer taking narcotic pain medications), - Shower/bathe limit: (october shower beginning Tuesday) Diet: - Resume previous diet SPECIAL CARE INSTRUCTIONS: - May shower on Tuesday. Sponge bath and wash hair in meantime. Let water run over area and pat dry. - Leave steri strips on for one week and then remove. - Call the surgeon's office with any questions or concerns - - (ex. temperature higher than 101 degrees F, excessive bleeding or pain). MEDICATIONS: - Resume previous medications unless instructed otherwise by your surgeon. - May alternate extra strength Tylenol and ibuprofen as needed for mild to moderate pain -650 mg Tylenol every 6 hours as needed - Ibuprofen 600 mg every 6 hours as needed (take with food and limit continuous duration for no more than 3 days) - Percocet 1 every 4 hours, as needed for moderate to severe pain - Recommend daily stool softener (Colace) while taking narcotic pain medication to prevent constpation and straining. FOLLOW UP VISIT: - If not already scheduled, please call the office to schedule a two week follow-up appointment. Office number Pending Studies at Discharge: Yes (gallbladder pathology, will be reviewed at follow-up visit) Stand-Alone Forms: [employer], Opioid Pain Management, Smoking Cessation Medications and DC Order Prescriptions: New oxycodone-acetaminophen 5-325 mg tablet 1 tab PO Q6H PRN (Reason: pain) Qty: 10 0RF Discharge Orders: Discharge Order (Routine); Ordered 03/12/22 Ordered By: Shraddha Lopez/Other Patient Handouts: DVT Post Op Prevention, Low-Fat Cooking Tips Admission Data Admit Date/Time: 03/10/22 14:02 Attending Provider: Zohaib Rhodes Admit Provider: Zohaib Rhodes Primary Care Provider: PCP,NO Other Providers: Zohaib Rhodes Other Interventions: Discharge Summary Assessment (RN) Last Done: 03/12/22 11:59
== END 2022-03-12 14:32 | disposition home or self-care (01) | DRG 419 ==
LOC: ED 09:30 → 3E 14:02